=== PATIENT | female | born 1960 | race Caucasian/White ===

== ENCOUNTER → 2020-09-07 | Outpatient (CLI) | payer BC ==
[~2020-09-07] MED LIST: ASPIRIN EC81 MG PO; ATORVASTATIN CA20 MG PO; BACTRIM DS TAB1 EACH PO; BETAPACE 80MG T80 MG PO; ELIQUIS5 MG PO; ENOXAPARIN100 MG/1 M SC; LASIX20 MG PO; LOPRESSOR 25 MG25 MG PO; LOSARTAN POTASS50 MG PO; METOPROLOL TART25 MG PO; NORCO 5-325 TA1 EACH PO; SOTALOL80 MG PO
== END ==
LOC: HEART 5 07:30
DX: I48.91 Unspecified atrial fibrillation (principal); R53.83 Other fatigue; R06.02 Shortness of breath; R94.39 Abnormal result of other cardiovascular function study; I08.3 Combined rheumatic disorders of mitral, aortic and tricuspid valves; I27.20 Pulmonary hypertension, unspecified
CPT/HCPCS: 78452; 93306; A9502; J2785

== ENCOUNTER → 2020-09-27 | Outpatient (CLI) | payer BC ==
[~2020-09-27] MED LIST changes: +ASPIRIN CHEWABL81 MG PO; +DECADRON6 MG PO
[2020-09-27 07:27] LABS: HEMOGLOBIN 14.4 gm/dl (12.3-15.3); RED BLOOD COUNT 4.72 M/UL (4.00-5.10); WHITE BLOOD COUNT 7.4 K/UL (4.5-11.0)
[2020-09-27 07:44] LABS: BUN/CREATININE RATIO 28 (0-10)
== END ==
LOC: CATH 06:49
PROVIDERS: Internal Medicine Cardiovascular Disease
DX: Z01.818 Encounter for other preprocedural examination (principal); R91.1 Solitary pulmonary nodule; I48.91 Unspecified atrial fibrillation; R94.31 Abnormal electrocardiogram [ECG] [EKG]
CPT/HCPCS: 36415; 71045; 80048; 85025; 85610; 93005; 99152; 99153; C1769; C1887; C1894; J1644; J2250; J3010; J7030; Q9967

== ENCOUNTER → 2020-10-24 | Outpatient (CLI) | payer BC, OTHER | LOC: HEART 5 13:03 | DX: I48.91 Unspecified atrial fibrillation (principal) ==

== ENCOUNTER → 2020-10-27 13:37 | Emergency (ER) | payer BC, OTHER ==
[~2020-10-27] VITALS: Ht 165.1 cm; Wt 104.3 kg
[2020-10-27 15:03] LABS: HEMOGLOBIN 13.6 gm/dl (12.3-15.3); RED BLOOD COUNT 4.38 M/UL (4.00-5.10); WHITE BLOOD COUNT 8.7 K/UL (4.5-11.0)
[2020-10-27 15:45] LABS: BUN/CREATININE RATIO 17 (0-10)
== END | disposition home or self-care (01) ==
LOC: ER1 13:37
PROVIDERS: Family Medicine
DX: U07.1 COVID-19 (principal); I48.91 Unspecified atrial fibrillation; I10 Essential (primary) hypertension; Z23 Encounter for immunization
CPT/HCPCS: 71045; 80053; 82550; 82553; 83615; 83874; 84484; 85025; 86140; 93005; 99284; M0243

== ENCOUNTER → 2020-12-03 | Emergency (ER) | payer BC, OTHER | END | disposition home or self-care (01) | LOC: ER1 | DX: I83.91 Asymptomatic varicose veins of right lower extremity (principal); I48.91 Unspecified atrial fibrillation; Z79.82 Long term (current) use of aspirin | CPT/HCPCS: 99283 ==

== ENCOUNTER → 2021-01-08 | Outpatient (CLI) | payer BC ==
[2021-01-08 09:27] LABS: RED BLOOD COUNT 4.51 M/UL (4.00-5.10); WHITE BLOOD COUNT 7.5 K/UL (4.5-11.0)
[2021-01-09 12:14] LABS: ANTISTREPTOLYSIN O AB 58.4 IU/mL (0.0-200.0); RHEUMATOID ARTHRITIS FACTOR <10.0 IU/mL (0.0-13.9)
== END ==
LOC: LAB 08:29
PROVIDERS: Nurse Practitioner
DX: M25.562 Pain in left knee (principal); M25.561 Pain in right knee; I48.91 Unspecified atrial fibrillation
CPT/HCPCS: 36415; 73564; 80053; 80061; 83036; 84443; 84550; 85027; 85652; 86038; 86060; 86140; 86431

== ENCOUNTER → 2021-01-23 | Outpatient (CLI) | payer BC ==
[~2021-01-23] MED LIST changes: +SOTALOL120 MG PO
[2021-01-23 07:58] LABS: HEMOGLOBIN 13.7 gm/dl (12.3-15.3); RED BLOOD COUNT 4.55 M/UL (4.00-5.10); WHITE BLOOD COUNT 8.6 K/UL (4.5-11.0)
[2021-01-23 08:14] LABS: BUN/CREATININE RATIO 29 (0-10)
== END ==
LOC: CATH 01-02 07:30
PROVIDERS: Internal Medicine Cardiovascular Disease
DX: I48.19 Other persistent atrial fibrillation (principal); I42.0 Dilated cardiomyopathy; I25.10 Atherosclerotic heart disease of native coronary artery without angina pectoris; I10 Essential (primary) hypertension; E78.5 Hyperlipidemia, unspecified; I34.0 Nonrheumatic mitral (valve) insufficiency; Z79.01 Long term (current) use of anticoagulants; Z79.82 Long term (current) use of aspirin; Z20.822 Contact with and (suspected) exposure to COVID-19; R94.31 Abnormal electrocardiogram [ECG] [EKG]
CPT/HCPCS: 36415; 80048; 84439; 84443; 84481; 85027; 92960; 93005; J7040